=== PATIENT | male | born 1970 | race African-American/Black ===

== ENCOUNTER 2018-07-31 09:31 | Emergency (ER) | payer OTHER ==
[~2018-07-31] VITALS: Ht 180.3 cm; Wt 113.4 kg
[2018-07-31 09:43] VITALS: BP 143/88
--- NOTE | 2018-07-31 09:54 | PHYS DOC ---
Past History Past Medical History: GERD, High Cholesterol, Hypertension, Other Past Surgical History: Other Alcohol Use: None Drug Use: None Adult General Chief Complaint Chief Complaint: FLU SYMPTOM HPI HPI 48-year-old male presents with cough, congestion, and sore throat. The patient was diagnosed with influenza 3 days ago. He presents today because they told him he should be starting to feel better by now and he doesn't feel any better. He is using Tessalon Perles for his cough and Mucinex for the congestion. He denies having a fever at home. There is no fever in the ED. He has no new symptoms. Review of Systems Review of Systems Constitutional: Denies fever or chills [] Eyes: Denies change in visual acuity, redness, or eye pain [] HENT: Nasal congestion and sore throat [] Respiratory: Cough without shortness of breath [] Cardiovascular: No additional information not addressed in HPI [] GI: Denies abdominal pain, nausea, vomiting, bloody stools or diarrhea [] : Denies dysuria or hematuria [] Musculoskeletal: Denies back pain or joint pain [] Integument: Denies rash or skin lesions [] Neurologic: Denies headache, focal weakness or sensory changes [] Endocrine: Denies polyuria or polydipsia [] All other systems were reviewed and found to be within normal limits, except as documented in this note. Allergies Allergies Allergies Coded Allergies Type Severity Reaction Last Updated Verified No Known Drug Allergies 07/31/18 No Physical Exam Physical Exam Constitutional: Well developed, well nourished, no acute distress, non-toxic appearance. [] HENT: Normocephalic, atraumatic, bilateral external ears normal, oropharynx erythematous without exudates, nose congested. Bilateral tympanic membranes normal [] Eyes: PERRLA, EOMI, conjunctiva normal, no discharge. [] Neck: Normal range of motion, no tenderness, supple, no stridor. [] Cardiovascular:Heart rate regular rhythm, no murmur [] Lungs & Thorax: Bilateral breath sounds clear to auscultation [] Abdomen: Bowel sounds normal, soft, no tenderness, no masses, no pulsatile masses. [] Skin: Warm, dry, no erythema, no rash. [] Back: No tenderness, no CVA tenderness. [] Extremities: No tenderness, no cyanosis, no clubbing, ROM intact, no edema. [] Neurologic: Alert and oriented X 3, normal motor function, normal sensory function, no focal deficits noted. [] Psychologic: Affect normal, judgement normal, mood normal. [] Current Patient Data Vital Signs Vital Signs Date Time Temp Pulse Resp B/P (MAP) Pulse Ox O2 Delivery O2 Flow Rate FiO2 07/31/18 09:43 98.1 71 98 07/31/18 09:42 20 143/88 (106) Room Air EKG EKG [] Radiology/Procedures Radiology/Procedures [] Course & Med Decision Making Course & Med Decision Making Pertinent Labs and Imaging studies reviewed. (See chart for details) I believe the patient is already doing all the appropriate things for symptomatic treatment. Influenza just has to run its course. He is stable for discharge at this time. [] Dragon Disclaimer Dragon Disclaimer This electronic medical record was generated, in whole or in part, using a voice recognition dictation system. Departure Departure: Impression: Primary Impression: Influenza Disposition: 01 HOME, SELF-CARE Condition: STABLE Patient Instructions: Influenza, Adult, [id number] JESSICA PINEDA DO Jul 31, 2018 09:54
== END 2018-07-31 09:50 | disposition home or self-care (01) ==
LOC: ER 09:31
DX: J11.1 Influenza due to unidentified influenza virus with other respiratory manifestations (principal); K21.9 Gastro-esophageal reflux disease without esophagitis; E78.00 Pure hypercholesterolemia, unspecified; I10 Essential (primary) hypertension
CPT/HCPCS: 99281

== ENCOUNTER 2020-04-08 16:57 | Emergency (ER) | payer OTHER ==
[~2020-04-08] VITALS: Ht 182.9 cm; Wt 111.0 kg
--- NOTE | 2020-04-08 18:09 | PHYS DOC ---
Past History Past Medical History: GERD, High Cholesterol, Hypertension, Other (ARELY DELGADO DO) Past Surgical History: Other (ARELY DELGADO DO) Alcohol Use: None Drug Use: None (ARELY DELGADO DO) General Adult EDM: Chief Complaint: POST-OP PROBLEM HPI: HPI: 50-year-old male past medical history significant for hypertension, hyperlipidemia and GERD, presents to the ED with complaints of bleeding from his surgical site repair, patient had ulnar nerve and carpal tunnel release on March 30 at [facility]. Patient states he accidently banged his elbow and the surgical site is now slightly opened and bleeding. On no AC. (ARELY DELGADO DO) Review of Systems: Review of Systems: Constitutional: Denies fever or chills Eyes: Denies change in visual acuity HENT: Denies nasal congestion or sore throat Respiratory: Denies cough or shortness of breath Cardiovascular: Denies chest pain GI: Denies abdominal pain, nausea, vomiting, or diarrhea : Denies dysuria Musculoskeletal: Denies back pain or joint pain Integument: Denies rash Neurologic: Denies headache, focal weakness or sensory changes Endocrine: Denies polyuria or polydipsia Lymphatic: Denies swollen glands Psychiatric: Denies depression or anxiety (ARELY DELGADO DO) Allergies: Allergies: Allergies Coded Allergies Type Severity Reaction Last Updated Verified No Known Drug Allergies 07/31/18 No (ARELY DELGADO DO) Physical Exam: PE: Constitutional: Well developed, well nourished, no acute distress, non-toxic appearance. [] HENT: Normocephalic, atraumatic, Eyes: EOMI, conjunctiva normal, no discharge. [] Neck: Normal range of motion, supple, Cardiovascular:Heart rate regular rhythm, no murmur [] Lungs & Thorax: Speaking in full sentences, no respiratory distress Abdomen: soft, no tenderness, Skin: Warm, dry, no erythema, no rash. [] Back: No tenderness, Extremities: no cyanosis, no clubbing, ROM intact, no edema, proximal forearm 4cm wound with proximal aspect of wound margins open-able to express blood, no purulence, ecchymosis surrounding surgical site repair that extends down forearm and to the elbow-increased warmth or fluctuance or crepitus Neurologic: Alert and oriented X 3, normal motor function, normal sensory function, no focal deficits noted. [] Psychologic: Affect normal, judgement normal, mood normal. [] (ARELY DELGADO DO) Current Patient Data: Vital Signs: Vital Signs Date Time Temp Pulse Resp B/P (MAP) Pulse Ox O2 Delivery O2 Flow Rate FiO2 04/08/20 17:03 98.2 93 16 144/123 (130) 95 Room Air (ARELY DELGADO DO) EKG: EKG: [] (ARELY DELGADO DO) Radiology/Procedures: Radiology/Procedures: Bedside [id number] ultrasound with phased array cardiac probe (4cm depth) shows no underlying fluid collection surrounding surgical site (ARELY DELGADO DO) Radiology/Procedures: PROCEDURE: ELBOW LEFT 3V Left elbow 3 views 04/08/2020. Reason for exam: Pain after injury. No fracture or dislocation is seen. There is no apparent joint narrowing or joint effusion. IMPRESSION: No acute abnormality. Electronically signed by: Jim Forrest Jr., MD (04/08/2020 6:12 PM) [facility] (SHELDON RICH DO) Course & Med Decision Making: Course & Med Decision Making Pertinent Labs and Imaging studies reviewed. (See chart for details) Concern for surgical wound dehiscence with mild bleeding from site, possible traumatic hematoma. X-rays pending at shift change. Patient with full range of motion of his elbow, no pain at the shoulder or wrist. Due to shift change patient was signed out to Dr. Couch. (KRISTINARELY DO) Course & Med Decision Making Thorough signout obtained from off going physician Patient seen and examined by myself, reviewed findings of negative ultrasound and negative radiographs Patient discussed case with surgeon on phone, all in agreement for discharge home with antibiotics for prophylactic bacterial infection of grossly well- appearing surgical wound with signs of mild dehiscence Patient has good access to surgeon and is scheduled to be seen this upcoming Thursday, I feel this is appropriate X1 Bactrim double strength administered and tolerated well today, no history of MRSA infection per patient. I have written a 10-day course for patient to take on discharge Strict return precautions discussed with good understanding all questions and concerns addressed prior to ER departure in stable condition (SHELDON RICH DO) [place] Disclaimer: [place] Disclaimer: This electronic medical record was generated, in whole or in part, using a voice recognition dictation system. (ARELY DELGADO DO) Departure Departure: Impression: Primary Impression: Surgical wound dehiscence Disposition: 01 HOME/RESIDENCE PRIOR TO ADM Condition: STABLE Referrals: MANUEL LAZARO DO (PCP) Scripts Sulfamethoxazole/Trimethoprim (BACTRIM DS TABLET) 1 Each Tablet 1 TAB PO BID for Wound Dehiscence for 10 Days, #20 TAB 0 Refills Prov: SHELDON RICH DO 04/08/20 Justification of Admission: Justification of Admission: Justification of Admission Dx: N/A (ARELY DELGADO DO) Justification of Admission Dx: N/A (SHELDON RICH DO) ARELY DELGADO DO Apr 08, 2020 18:09 SHELDON RICH DO Apr 08, 2020 18:41
--- NOTE | 2020-04-08 18:15 | RAD ---
Left elbow 3 views 04/08/2020. Reason for exam: Pain after injury. No fracture or dislocation is seen. There is no apparent joint narrowing or joint effusion. IMPRESSION: No acute abnormality. Electronically signed by: Jim Forrest Jr., MD (04/08/2020 6:12 PM) [facility]
[2020-04-08] MEDS ORDERED: SULF1TAB24 PO (18:39)
[2020-04-08 18:40] VITALS: BP 123/71
== END 2020-04-08 18:43 | disposition home or self-care (01) ==
LOC: ER 16:57
DX: T81.30XA Disruption of wound, unspecified, initial encounter (principal); M96.830 Postprocedural hemorrhage of a musculoskeletal structure following a musculoskeletal system procedure; K21.9 Gastro-esophageal reflux disease without esophagitis; E78.00 Pure hypercholesterolemia, unspecified; I10 Essential (primary) hypertension
CPT/HCPCS: 73080; 99283